=== PATIENT | female | born 1985 | race Two or more races ===

== ENCOUNTER 2021-01-10 04:58 | Inpatient (IN) | payer OTHER ==
[~2021-01-10] VITALS: Ht 162.6 cm; Wt 2.7 kg
[2021-01-13] MEDS ORDERED: NIFEDIPINE ER30 M1 (08:09)
== END 2021-01-13 18:13 | disposition home or self-care (01) | DRG 787 ==
LOC: O/R 04:58 → LDR 04:58 → SURG-SUITE 04:58 → O/R 11:48 → SURG-SUITE 14:58
PROVIDERS: ADMIT Specialist; ATTEND Specialist
PROC: 4A1HXFZ Monitoring of Products of Conception, Cardiac Rhythm, External Approach (ICD-10-PCS; 2021-01-10)
PROC: 10D00Z1 Extraction of Products of Conception, Low, Open Approach (ICD-10-PCS; principal; 2021-01-10 07:00)
DX: O60.23X0 Term delivery with preterm labor, third trimester, not applicable or unspecified (principal); O41.03X0 Oligohydramnios, third trimester, not applicable or unspecified; O69.2XX0 Labor and delivery complicated by other cord entanglement, with compression, not applicable or unspecified; O99.284 Endocrine, nutritional and metabolic diseases complicating childbirth; E06.3 Autoimmune thyroiditis; Z3A.38 38 weeks gestation of pregnancy; Z37.0 Single live birth; Z20.822 Contact with and (suspected) exposure to COVID-19